=== PATIENT | male | born 1960 | race African-American/Black ===

== ENCOUNTER 2021-05-23 15:40 | Outpatient (CLI) | payer BC, SELFPAY ==
--- NOTE | ~2021-05-23 | XR_ITS ---
EXAMINATION: XR hip RT 2V w AP pelvis EXAM DATE: 05/23/2021 16:16 INDICATION: Right hip pain. TECHNIQUE: Right hip frontal, 'frog leg' projections for interpretation. Frontal projection pelvis. Comparison is made to prior examination from 05/23/2021. FINDINGS: Smooth right hip femoral head contour, no radiographic evidence of avascular necrosis. The re is mild symmetric bilateral hip primary osteoarthritis. There are no acute fractures or dislocatio ns identified. There is no subcutaneous gas. The soft tissue is unremarkable. There are no radiop aque foreign bodies. IMPRESSION: Mild symmetric bilateral hip osteoarthritis. Reviewed, dictated and finalized at location A.
--- NOTE | ~2021-05-23 | XR_ITS ---
EXAMINATION: XR knee RT min 4V EXAM DATE: 05/23/2021 16:16 INDICATION: M25.561 - Pain in right knee . TECHNIQUE: Right knee lateral, frontal AP, frontal PA tunnel, sunrise projections. There is no prior study for comparison. FINDINGS: No evidence osteochondral defect or joint body in the right knee joint. There are no acut e fractures or dislocations identified. There is no subcutaneous gas. The soft tissue is unremarkab le. There are no radiopaque foreign bodies. IMPRESSION: 1. Unremarkable right knee exam. Reviewed, dictated and finalized at location A.
--- NOTE | ~2021-05-23 | XR_ITS ---
EXAMINATION: XR sacroiliac joints min 3V EXAM DATE: 05/23/2021 16:17 INDICATION: Pelvic, right hip pain. TECHNIQUE: Sacroiliac joints frontal and bilateral oblique projections. There is no prior study for comparison. FINDINGS: The sacroiliac joints are symmetric and unremarkable. Sacrum, sacroiliac joints, sacral ar howard lines are intact. There are no acute fractures or dislocations identified. There is no subcuta neous gas. The soft tissue is unremarkable. There are no radiopaque foreign bodies. IMPRESSION: 1. Unremarkable sacroiliac joint exam. Reviewed, dictated and finalized at location A.
== END 2021-05-23 15:41 | disposition home or self-care (01) ==
LOC: ANHIMG 15:47
PROVIDERS: PCP Internal Medicine; Visit Provider Internal Medicine
DX: M25.561 Pain in right knee (principal); M25.551 Pain in right hip
CPT/HCPCS: 72202; 73502; 73564

== ENCOUNTER 2021-07-16 10:14 | Outpatient (CLI) | payer BC, SELFPAY ==
--- NOTE | 2021-07-16 10:15 | ECG_ITS ---
Measurements Intervals [place] Rate: 64 P: 77 MS: 206 QRS: 80 QRSD: 86 T: 60 QT: 377 QTc: 391 Interpretive Statements SINUS RHYTHM WITH FIRST DEGREE AV BLOCK RSR' IN V1 OR V2, CONSIDER RIGHT VENTRICULAR HYPERTROPHY OR RIGHT VCD ST ELEVATION CONSISTENT WITH INJURY, PERICARDITIS, OR EARLY REPOLARIZATION ABNORMAL ECG Electronically Signed On 07-16-2021 10:49:44 CDT by Darian Guevara D.O.
[2021-07-16 11:54] LABS: Alanine Aminotransferase 19 U/L (4-50); Albumin Level 4.6 g/dL (3.5-5.1); Alkaline Phosphatase 65 U/L (38-126); Amylase 120 U/L (30-110); Anion Gap -36 mmol/L (8-16); Aspartate Amino Transferase 26 U/L (17-59); Bilirubin,Total 0.7 mg/dL (0.2-1.3); Blood Urea Nitrogen 9 mg/dL (9-20); Calcium 9.7 mg/dL (8.4-10.2); Carbon Dioxide 29 mmol/L (22-30); Chloride 103 mmol/L (98-107); Estimated Glomerular Filt Rate > 60; Glucose 90 mg/dL (65-110); Lipase 243 U/L (23-300); Sodium 96 mmol/L (137-145)
== END 2021-07-16 10:15 | disposition home or self-care (01) ==
PROVIDERS: PCP Internal Medicine; Visit Provider Surgery
DX: Z01.818 Encounter for other preprocedural examination (principal); K82.4 Cholesterolosis of gallbladder; R94.31 Abnormal electrocardiogram [ECG] [EKG]
CPT/HCPCS: 36415; 80053; 82150; 82248; 83690; 86850; 86900; 86901; 93005

== ENCOUNTER 2021-07-17 01:38 | Day surgery (SDC) | payer BC, SELFPAY ==
[2021-07-16 09:14] VITALS: BMI 20.3
--- NOTE | 2021-07-16 13:22 | WPDANESEPPF ---
Anes - Initial Pre Proc Eval Procedure: Operation Date: 07/17/21 12:00 Proposed Procedures p Laparoscopic Cholecystectomy - Lakshmi Beltran MD Date/Time: 07/16/21 13:22 Surgeon: Lakshmi Beltran MD Pre Op Diagnosis: Gall Bladder Polyp Patient Data Age: 61 Gender: M Height: 1.83 m Weight: 68.04 kg Allergies Allergy/AdvReac Type Severity Reaction Status Date / Time No Known Allergies Allergy Verified 07/17/21 10:12 Home Medications Medication Instructions Recorded Confirmed Type tadalafil 20 mg tablet 20 mg PO DAILY PRN 11/14/19 07/17/21 History blood sugar diagnostic #400 each 02/13/20 07/17/21 Rx blood-glucose meter #1 each 02/13/20 07/17/21 Rx flash glucose scanning reader #1 each 02/13/20 07/17/21 Rx lancets #400 each 02/13/20 07/17/21 Rx multivitamin 1 tablet PO DAILY 09/18/20 07/17/21 History vitamin B complex 1 tablet PO DAILY 09/18/20 07/17/21 History dulaglutide 1.5 mg/0.5 mL See Rx Instructions .ROUTE 03/11/21 07/17/21 Rx subcutaneous pen injector .COMPLEX #6 syringe dapagliflozin 10 mg tablet 10 mg PO DAILY #90 tablet 04/29/21 07/17/21 Rx flash glucose sensor #6 each 04/29/21 07/17/21 Rx icosapent ethyl 1 gram capsule 2 g PO BID 90 Days #360 cap 04/29/21 07/17/21 Rx insulin degludec 200 unit/mL (3 20 unit .ROUTE .COMPLEX #12 syr 05/06/21 07/17/21 Rx mL) subcutaneous pen pen needle, diabetic 32 gauge x See Rx Instructions .ROUTE 06/25/21 07/17/21 Rx 5/32 .COMPLEX #100 syringe atorvastatin 20 mg PO HS 07/16/21 07/17/21 History metformin 500 mg PO BID 07/16/21 07/17/21 History pregabalin [Lyrica] 75 mg PO HS 07/16/21 07/17/21 History Patient hx anesthesia problems: none Family hx anesthesia problems: none PMFSH Past Medical History Medical History (Updated 07/16/21 @ 13:24 by Cy South DO) Abdominal bloating Adenomyomatosis of gallbladder Carpal tunnel syndrome of right wrist Chronic pain of right knee Colon cancer screening Diabetes type 2, controlled DJD (degenerative joint disease), multiple sites Elevated PSA Encounter for long-term current use of medication Encounter for routine adult health examination with abnormal findings Encounter for routine adult health examination without abnormal findings Hip pain History of shingles Hyperlipidemia Indigestion On alf drug therapy Prostate cancer screening RUQ abdominal pain Shingles Family History Family History Sibling Hypertension Malignant neoplasm of prostate Mother Family history of diabetes mellitus in first degree relative Diabetes mellitus Hypertension Father Diabetes mellitus Malignant neoplasm of prostate Family history of diabetes mellitus in first degree relative Other Family history of malignant neoplasm Social History Social History Smoking status: Never smoker Second hand tobacco smoke exposure: No Alcohol intake: current Alcohol use details: socially; maybe 2 drinks per month beer/wine Substance use: never Substance use type: does not use Living arrangements: with family Additional occupation/education comments: in marketing Spiritual care concerns: No Anes - Eval Final PreProcedure Day of Procedure 07/16/21 13:22 Patient weight: normal Heart: regular rate and rhythm Lungs: clear to auscultation and normal air movement Airway: Mallampati scale class II Neurological: alert and oriented Last oral intake: >/= 8 hours ASA classification: III Emergent: no Anesthetic plan: proceed Anesthesia type and monitoring: general ETT and standard monitoring Informed Consent: The patient's anesthetic plan and its attendant risks and benefits were discussed with the patient/family/POA. Questions were solicited and answers provided to the satisfaction of the patient/family/POA.
[2021-07-17] VITALS (8 sets, daily range): BP systolic 121–145; BP diastolic 72–90; PULSE 64–84; RESP 16–18; TEMP 36.1–36.2; O2SAT 99–100
[2021-07-17] MEDS: LACTATED RINGERS 1,000 ML 30 ML IV CONT ×2 (10:30→13:52)
[2021-07-17 10:37] LABS: Sodium 140 mmol/L (137-145)
[2021-07-17 10:45] LABS: Glucose Point of Care 110 mg/dl (65-105)
[2021-07-17] MEDS: ACETAMINOPHEN 500 MG TABLET 1000 MG PO (11:05)
[2021-07-17] MEDS: KETOROLAC 15 MG/ML VIAL (*BKC) IV PUSH (11:06)
--- NOTE | 2021-07-17 11:50 | WPDHPUPDATE1 ---
History and Physical Update Update Date/Time: 07/17/21 11:50 History and Physical has been reviewed, including an updated exam of the patient. There are NO changes in the patient's condition. Risks, benefits, and alternatives have been discussed and questions answered. Patient agrees to proceed with procedure.
[2021-07-17] MEDS: ceFAZolin 2 GM/D5W 50 ML 2 GM/50 ML BAG IVPB (12:00)
[2021-07-17] MEDS: BUPIVACAINE/EPINEPHRINE 0.5% 50 ML VIAL (12:53)
--- NOTE | 2021-07-17 13:06 | W.PM.PROC2 ---
Procedure Note - Detailed Date of Procedure 07/17/21 Pre-op Diagnosis Gall Bladder Polyp, chronic cholecystitis Post-op Diagnosis same Procedure Performed laparoscopic cholecystectomy Surgeon Lakshmi Beltran MD Anesthesia general Indications 61 y/o M c postprandial RUQ pain, bloating. U/S shows GB polyps, chronic cholecystitis Findings mild inflammation, adhesions Description of Procedure The patient was taken to the operating room placed in the supine position. After adequate induction of general anesthesia, the patient was prepped and draped in normal sterile fashion. A time-out was then performed to verify the patient's identity as well as the procedure being performed. I then made a 5 mm incision in the infraumbilical region. Through this, a Veress needle was placed into the peritoneal cavity and CO2 gas was then insufflated. After adequate pneumoperitoneum was achieved, the Veress needle was removed and a 5 mm optiview trocar was placed through this incision under direct visualization. I then placed the laparoscope through this trocar site and under direct visualization placed a further 12 mm subxiphoid port as well as 2 additional 5 mm ports in the right upper abdomen. The gallbladder was then identified and was noted to be moderately inflamed, distended. There was a moderate amount of omental adhesions to the gallbladder and these were taken down both bluntly and with the electrocautery. Once free, I was able to place a grasper at the dome of the gallbladder and this was retracted anterior and cephalad up over the liver. A 2nd retractor was then placed at the infundibulum and retracted laterally, this allowed visualization of the triangle of Calot. I then was able to visualize the cystic duct in its entirety from its proximal insertion into the gallbladder, to its distal junction with the common hepatic/common bile duct junction. At this point, I carefully skeletonized the proximal cystic duct with the [place] dissector. I then clipped and transected the proximal cystic duct. Next I visualized the cystic artery. Again the artery was skeletonized, clipped, and transected. I then used the Bovie cautery to take down the peritoneal attachments of the gallbladder off the liver bed. This was somewhat difficult given the amount of inflammation in the posterior space. Once the gallbladder specimen was completely detached, an endo-pouch was placed through the 12 mm port site. I then placed the gallbladder specimen into the Endo pouch and removed the endo-pouch from the 12 mm port site. The specimen will now be sent to pathology for further review. I then copiously irrigated the right upper quadrant. Hemostasis was noted in the liver bed, the clips were noted to be in good position on both the cystic duct stump and the cystic artery stump. No other pathology was noted in the right upper quadrant. I then moved the laparoscope to the subxiphoid port. No iatrogenic injury or other pathology was noted in the lower abdomen. I then closed the 12 mm trocar site under direct visualization using the Derick cone and 0 Vicryl suture. At this point, the abdomen was desufflated and all ports removed. All port sites were then closed with 4.O Monocryl subcuticular sutures. Dermabond was placed on each incision. The patient tolerated the procedure well, was extubated in the operating room postoperative and will be transferred to the recovery room in stable condition Estimated Blood Loss 10 Drains No Packing No Pathology yes Complications No immediate complications Condition stable Disposition PACU
[2021-07-17 13:45] LABS: Glucose Point of Care 124 mg/dl (65-105)
== END 2021-07-17 15:00 | disposition home or self-care (01) ==
PROVIDERS: Anesthesiology; PCP Internal Medicine; Visit Provider Surgery
PROC: 0FT44ZZ Resection of Gallbladder, Percutaneous Endoscopic Approach (ICD-10-PCS; CPT 47562; principal; 2021-07-17 12:00)
DX: K81.1 Chronic cholecystitis (principal); E11.9 Type 2 diabetes mellitus without complications; Z79.4 Long term (current) use of insulin; E78.5 Hyperlipidemia, unspecified; Z79.899 Other long term (current) drug therapy
CPT/HCPCS: 47562; 36415; 82948; 84295; 88304; A9270; J0690; J1100; J1170; J1885; J2250; J2370; J2405; J2704; J2710; J3010; J7030; J7120

== ENCOUNTER 2024-03-22 08:24 | Outpatient (CLI) | payer OTHER, SELFPAY ==
--- NOTE | 2024-03-22 12:51 | WPDPFTINT ---
PFT Procedure Performed PFT Procedure Performed Spirometry with Pre/Post Bronchodilator Plethysmography (Lung Vol) Diffusing Cap (DLCO) Flow Vol Loop PFT Interpretation This is a pulmonary function test with pre and post-bronchodilator spirometry, plethysmography and diffusing capacity. The test was performed and results interpreted in accordance with the 2019 and 2005 ATS/ERS Task Force guidelines respectively using the Global Lung Function Initiative-2012 reference equations. Patient demonstrated good effort and cooperation. Reproducibility criteria were met. The quality of the pre bronchodilator spirometry maneuver was Grade A and post bronchodilator spirometry maneuver was Grade A. Findings: Spirometry: The contour the inspiratory and expiratory flow tracing are normal. The pre bronchodilator FVC is 4.56 L, 110% predicted. The pre bronchodilator FEV1 is 3.56 L, 112% predicted. The pre bronchodilator FEV1: FVC ratio is 78%. The post bronchodilator FVC is 4.49 L, representing a 2% decrease. The post bronchodilator FEV1 is 3.62 L, representing a 1% increase. The post bronchodilator FEV1: FVC ratio is 81%. Plethysmography: The total lung capacity is 6.43 L, 99% predicted. The functional residual capacity is 4.05 L, 112% predicted. The residual volume is 1.83 L, 82% predicted. Diffusing capacity: The diffusing capacity unadjusted for hemoglobin and carboxyhemoglobin is 24.0, 83% predicted. The diffusing capacity adjusted for alveolar volume is 4.44, 109% predicted. Impression: The spirometry is normal without evidence of an obstructive abnormality. There is no significant improvement after inhaling a single dose of albuterol. The lung volumes are normal. The diffusing capacity is normal. There are no prior studies for comparison
== END 2024-03-22 08:25 | disposition home or self-care (01) ==
LOC: ANHPFT 08:24
PROVIDERS: PCP Internal Medicine; Visit Provider Internal Medicine
DX: R06.09 Other forms of dyspnea (principal)
CPT/HCPCS: 94060; 94726; 94729

== ENCOUNTER 2024-04-07 13:02 | Outpatient (CLI) | payer OTHER, SELFPAY ==
--- NOTE | 2024-04-07 13:15 | ECHO_ITS ---
Patient Info Name: Remington Blair Age: 64 years : 1960 Gender: Male Ht: 72 in Wt: 155 lbs BSA: 1.88 m2 HR: 73 bpm BP: 125 / 76 mmHg Technical Quality: Fair Exam Date: 04/07/2024 1:42 PM Exam Location: Echo Lab Patient Status: Outpatient Admit Date: 04/07/2024 Staff Ordering Physician: Roman Willis MD Oyster Worker: Warren Marroquin RDCS Attending Provider: Roman Willis MD Referring Physician: Alba BOYD; Exam Type: CA echo doppler color flow Study Info Indications R06.09 - Other forms of dyspnea Complete two-dimensional, color flow and Doppler transthoracic echocardiogram is performed. Summary 1. Complete two-dimensional, color flow and Doppler transthoracic echocardiogram is performed. 2. Left ventricular chamber dimension is normal. 3. Left ventricular systolic function is normal, estimated at 65-70%. 4. The left ventricular diastolic function is normal. 5. There is mild mitral valve regurgitation. 6. There is trace tricuspid valve regurgitation. 7. No pulmonary hypertension, estimated pulmonary arterial systolic pressure is 22 mmHg. 8. There is trace pulmonic regurgitation. Left Ventricle Tissue doppler E/e' was not performed. Left ventricular chamber dimension is normal. Left ventricular systolic function is normal, estimated at 65-70%. The left ventricular diastolic function is normal. Right Ventricle Right ventricular systolic function is normal and with normal TAPSE 2.4 cm. Right ventricular chamber dimension is normal. Left Atria Left atrial chamber dimension is normal. Right Atria Right atrial chamber dimension is normal. Aortic Valve The aortic valve is trileaflet. There is no aortic valve stenosis. There is no aortic valve regurgitation. Pulmonic Valve There is trace pulmonic regurgitation. Mitral Valve There is no mitral valve stenosis. There is mild mitral valve regurgitation. Tricuspid Valve There is trace tricuspid valve regurgitation. No pulmonary hypertension, estimated pulmonary arterial systolic pressure is 22 mmHg. Pericardium/Pleural There is no pericardial effusion. Inferior Vena Cava Normal inferior vena cava with >50% collapse upon inspiration consistent with normal right atrial pressure, 5 mmHg. Aorta The aortic root size at the sinus of Valsalva is normal. Left Ventricular Outflow Tract Name Value Normal LVOT 2D LVOT Diameter 1.9 cm LVOT Doppler LVOT Peak Gradient 4 mmHg LVOT Mean Gradient 2 mmHg LVOT VTI 20 cm LVOT VTI/AV VTI Ratio 0.9 LVOT Stroke Volume 53 ml LVOT CO 3.5 l/min LVOT CI 1.9 l/min/m2 Pulmonic Valve Name Value Normal RVOT Doppler RVOT Peak Gradient 3 mmHg PV Doppler
== END 2024-04-07 13:03 | disposition home or self-care (01) ==
LOC: ANHCARD 13:02
PROVIDERS: PCP Internal Medicine; Visit Provider Internal Medicine
DX: R06.09 Other forms of dyspnea (principal); I34.0 Nonrheumatic mitral (valve) insufficiency; I10 Essential (primary) hypertension; Z82.49 Family history of ischemic heart disease and other diseases of the circulatory system
CPT/HCPCS: 93306